=== PATIENT | male | born 2000 | race Hispanic/Latino ===

== ENCOUNTER 2024-02-03 18:19 | Emergency (ER) | payer SELFPAY ==
[~2024-02-03] VITALS: Ht 170.2 cm; Wt 74.8 kg
[2024-02-03 18:35] VITALS: TEMP 99.6
--- NOTE | 2024-02-03 19:27 | NUR ---
pt in gown US bedside at this time.
--- NOTE | 2024-02-03 20:07 | ERN ---
ED Note History of Present Illness Stated Complaint: PAIN ON TESTICLES Chief Complaint: Testicular Injury/Pain Time Seen by MD: 18:23 Time Seen by Midlevel: 18:23 Dictation: The patient is a 23-year-old male with no past medical history who presents to the emergency department with testicular pain onset . Patient reports pain is worse on the left. Denies any trauma, fevers, urinary discomfort or discharge. Patient reports having wound check your partner and using protection with intercourse. Allergies: Coded Allergies: No Known Drug Allergies (Unverified Allergy, Unknown, 02/03/24) Home Meds Active Scripts Ibuprofen (Ibuprofen) 600 Mg Tablet, 600 MG PO Q6H PRN for PAIN, #10 TAB Prov:GLEN ALVAREZ MITER SAWYER 02/03/24 Past Medical History Past Medical History: No Pertinent History Surgical History: None RN Note Reviewed/Agreed w/PFSH: Yes Review of System Dictation Constitutional: Negative for fever,chills, and weight loss Eyes: Negative for injury, pain,redness, and discharge ENT: Negative for injury,pain or swelling Cardiovascular: Negative for chest pain, palpitations, and edema Respiratory: Negative for shortness of breath, cough, and wheezing, Abdomen/GI: Negative for abdominal pain, nausea, vomiting, diarrhea, and constipation Back: Negative for injury and pain : Negative for injury, bleeding and discharge positive for testicular pain MS/Extremity: Negative for injury and deformity Skin: Negative for rash, and discoloration Neuro: Negative for headache, weakness, numbness, tingling, and seizure Psych: Negative for suicide ideation, homicidal ideation, and hallucinations Initial Vital Sign VS Vital Signs Date Time Temp Pulse Resp B/P (MAP) Pulse Ox O2 Delivery O2 Flow Rate FiO2 02/03/24 18:35 99.7 79 18 133/82 99 Room Air 02/03/24 20:19 0 21 Physical Exam Dictation General: awake, alert, NAD Head/Face: Normocephalic, atraumatic Eyes: PERRL, EOMI, vision at baseline ENT: oral cavity clear, TMs clear, no signs of infection Neck: Trachea midline, supple, no nuchal rigidity Cardiovascular: RRR, normal S1/S2, No MRGs, no JVD Respiratory: CTAB, no respiratory distress, No rales or wheezes Abdomen: Soft, non-tender, non-distended, normal bowel sounds, no guarding or rebound. Genital: No swelling or erythema, no tenderness, descended testicles, no alteration or wounds, Skin: Warm, dry, normal turgor, no rash MS/Extremity: Pulses equal, no cyanosis, neurovascular intact, FROM Neuro: COAx4, GCS 15, strength 5/5, CN 2-12 intact, normal cerebellar exam, normal gait, Psych: Normal behavior, mood, and affect normal Results (Laboratory/Radiology) Laboratory/Radiology Laboratory Tests Test 02/03/24 20:13 Urine Color YELLOW (YELLOW) Urine Appearance CLEAR (CLEAR) Urine pH 6.0 (5.0-8.0) Urine Specific [place] 1.029 (1.001-1.031) Urine Protein 10 mg/dL (NEGATIVE) H Urine Glucose (UA) NEGATIVE mg/dL (NEGATIVE) Urine Ketones 100 mg/dL (NEGATIVE) H Urine Occult Blood NEGATIVE (NEGATIVE) Urine Nitrate NEGATIVE (NEGATIVE) Urine Bilirubin NEGATIVE mg/dL (NEGATIVE) Urine Urobilinogen 3 mg/dL (0.2-1.0) H Urine Leukocyte Esterase NEGATIVE Aly/uL Urine RBC 0-1 /HPF (0-1) Urine WBC 2-5 /HPF (0-1) H Urine Squamous Epithelial Cells RARE /HPF (0-2) Urine Bacteria RARE /HPF (None Seen) REASON: pain, swelling ORDERING PHYSICIAN: GLEN ALVAREZ PROCEDURE: SCROTUM - US SCROTUM & CONTENTS US SCROTUM & CONTENTS REASON: pain, swelling COMPARISON: None TECHNIQUE: Routine scrotal sonogram was performed. Vascular Doppler evaluation was also performed using spectral analysis and color flow imaging. FINDINGS: Right testicle is 3.4 x 1.7 x 3.0 cm., Left is 3.9 x 1.7 x 3.9 cm. There is normal and symmetrical appearing blood flow. There are no focal masses and there is homogeneous appearing parenchyma. Epididymis appear normal. There is no hydrocele. The pampiniform plexuses are prominent on both sides, representing borderline varicoceles. IMPRESSION: 1. No acute finding. 2. Prominent right and left pampiniform plexus, these may represent borderline varicoceles. Labs Reviewed?: Yes ED Course ED Course Orders Procedure Category Date Status Time Urinalysis Profile LAB 02/03/24 Complete 18:43 Us Scrotum & Contents US 02/03/24 Resulted 18:43 Ibuprofen 600 Mg PHA 02/03/24 Complete Tablet (Motrin) 19:00 Current Medications Medications (Trade) Dose Ordered Sig/Destiny Route PRN Reason Start Time Stop Time Status Last Admin Dose Admin Ibuprofen (moTRIN) 600 mg ONCE ONCE PO 02/03/24 19:00 02/03/24 19:01 DC 02/03/24 20:15 Vital Signs Date Time Temp Pulse Resp B/P (MAP) Pulse Ox O2 Delivery O2 Flow Rate FiO2 02/03/24 20:19 65 16 126/70 98 Room Air* 0 21 02/03/24 18:35 99.7 79 18 133/82 99 Room Air Medical Decision Making MDM MDM: The patient is a 23-year-old male with no past medical history who presents to the emergency department with testicular pain onset . Patient reports pain is worse on the left. Denies any trauma, fevers, urinary d iscomfort or discharge. Patient reports having wound check your partner and using protection with intercourse. urinalysis unremarkable, us showed prominent right and left pampiniform plexus with may represents borderline varicocele. Patient in no acute distress will be discharge to follow up with pcp. Differential diagnosis: UTI, testicular torsion, epididymitis, varicocele Need for hospitalization: Patient does not meet criteria for hospitalization. There are no social concerns with this patient. DX & DISP Disposition: Discharge Departure Impression: Primary Impression: Testicular/scrotal pain Condition: Stable Assign Patient to: Please follow up with pcp in 1-2 days. You can take ibuprofen as needed for pain. If symptoms worsen or dont improve you might need referral to urologist by your pcp. if anything worsens please return to ER Scripts Ibuprofen (Ibuprofen) 600 Mg Tablet 600 MG PO Q6H PRN for PAIN, #10 TAB Prov: GLEN ALVAREZ 02/03/24 Referrals: SELF,REFERRAL (PCP) Time of Disposition: 20:50 I have reviewed the case, and I agree with, Diagnosis and Plan ATTESTATION BY PHYSICIAN I PERFORMED THE SUBSTANTIVE PORTION OF THE VISIT. I HAVE REVIEWED AND PERSONALLY MADE AND APPROVED THE MANAGEMENT PLAN THAT IS DOCUMENTED IN THE NOTE BY MYSELF FOR THE A PP. I ACKNOWLEDGED FOR RESPONSIBILITY FOR THE PATIENT'S MANAGEMENT PLAN. GLEN ALVAREZ Feb 03, 2024 20:07 TRISTAN DAIVD MD Feb 04, 2024 05:11
[2024-02-03] MEDS: ibuPROFEN 600 MG TABLET PO ONE (20:15)
--- NOTE | 2024-02-03 20:15 | NUR ---
UA sent at this time.
[2024-02-03 20:19] VITALS: BP 126/70; PULSE 65; RESP 16; O2SAT 98
[2024-02-03 20:24] LABS: APPEARANCE,URINE CLEAR (CLEAR); BILIRUBIN,URINE NEGATIVE (NEGATIVE); COLOR,URINE YELLOW (YELLOW); GLUCOSE, URINE (UA) NEGATIVE (NEGATIVE); KETONES,URINE 100 mg/dL (NEGATIVE); LEUKOCYTE ESTERASE ,URINE NEGATIVE Leu/uL (NEGATIVE); NITRATE,URINE NEGATIVE (NEGATIVE); OCCULT BLOOD,URINE NEGATIVE (NEGATIVE); PROTEIN,URINE 10 mg/dL (NEGATIVE); UROBILINOGEN,URINE 3 mg/dL (0.2-1.0)
[2024-02-03 20:26] LABS: ADD UA MICROSCOPIC YES
[2024-02-03 20:28] LABS: BACTERIA,URINE RARE /HPF (None Seen); MUCUS,URINE MOD LPF (None Seen); RBC,URINE 0-1 /HPF (0-1); SQUAMOUS EPITHELIAL CELL,UR RARE /HPF (0-2)
--- NOTE | 2024-02-03 20:37 | HMCIMG ---
US SCROTUM & CONTENTS REASON: pain, swelling COMPARISON: None TECHNIQUE: Routine scrotal sonogram was performed. Vascular Doppler evaluation was also performed using spectral analysis and color flow imaging. FINDINGS: Right testicle is 3.4 x 1.7 x 3.0 cm., Left is 3.9 x 1.7 x 3.9 cm. There is normal and symmetrical appearing blood flow. There are no focal masses and there is homogeneous appearing parenchyma. Epididymis appear normal. There is no hydrocele. The pampiniform plexuses are prominent on both sides, representing borderline varicoceles. IMPRESSION: 1. No acute finding. 2. Prominent right and left pampiniform plexus, these may represent borderline varicoceles.
[2024-02-03] MEDS ORDERED: IBUP-2070 PO (20:51)
== END 2024-02-03 21:03 | disposition home or self-care (01) ==
LOC: EDH 18:19
DX: N50.82 Scrotal pain (principal)
CPT/HCPCS: 76870; 81001; 99284